=== PATIENT | male | born 1960 | race Caucasian/White ===

== ENCOUNTER 2018-10-30 12:07 | Day surgery (SDC) | payer OTHER, MEDICAID ==
[2018-10-30] MEDS ORDERED: FENTAnyl 50 MCG/ML VIAL (13:55)
[2018-10-30] MEDS ORDERED: PROPOFOL 20 ML (13:55)
[2018-10-30] MEDS ORDERED: ONDANSETRON 4 MG INJ IV (14:00)
== END 2018-10-30 17:09 | disposition home or self-care (01) ==
LOC: GIL 12:07
DX: Z12.11 Encounter for screening for malignant neoplasm of colon (principal); D12.5 Benign neoplasm of sigmoid colon; K57.30 Diverticulosis of large intestine without perforation or abscess without bleeding; D12.3 Benign neoplasm of transverse colon
CPT/HCPCS: 45380; 88305